=== PATIENT | female | born 1975 | race Caucasian/White ===

== ENCOUNTER 2019-11-01 14:56 | Emergency (ER) | payer MEDICAID ==
[~2019-11-01] VITALS: Ht 167.6 cm; Wt 76.0 kg
[~2019-11-01 14:56] MED LIST: ADV50250 IH; ALBU8.5H4 IH; CLON-527 PO; VAL2T PO
[2019-11-01 15:00] VITALS: BP 146/114
--- NOTE | 2019-11-01 15:48 | NUR ---
TRUONG Sapp at bedside.
[2019-11-01] MEDS ORDERED: AMOX-422 PO (15:57)
[2019-11-01] MEDS ORDERED: PRED20TA PO (15:57)
[2019-11-01] MEDS ORDERED: amox tr/potassium clavulanate 875/125mg TAB PO STA (15:58)
== END 2019-11-01 16:14 | disposition home or self-care (01) ==
LOC: ER 14:57
DX: K04.7 Periapical abscess without sinus (principal); J45.909 Unspecified asthma, uncomplicated; F41.9 Anxiety disorder, unspecified; Z86.69 Personal history of other diseases of the nervous system and sense organs; Z98.51 Tubal ligation status; Z72.89 Other problems related to lifestyle; Z56.0 Unemployment, unspecified; Z59.0 Homelessness; Z88.8 Allergy status to other drugs, medicaments and biological substances; Z79.899 Other long term (current) drug therapy
CPT/HCPCS: 99283

== ENCOUNTER 2019-12-08 13:26 | Emergency (ER) | payer MEDICAID ==
[~2019-12-08] VITALS: Ht 167.6 cm; Wt 68.2 kg
[2019-12-08 13:27] VITALS: BP 169/100
[2019-12-08] MEDS ORDERED: HYDR-3965 PO (13:40)
[2019-12-08] MEDS ORDERED: clindamycin 150mg capsule PO ONE (13:40)
[2019-12-08] MEDS ORDERED: AMOX500C2 PO (13:40)
[2019-12-08] MEDS ORDERED: CLIN150C8 PO (13:40)
== END 2019-12-08 14:09 | disposition home or self-care (01) ==
LOC: ER 13:26
DX: K08.89 Other specified disorders of teeth and supporting structures (principal); R22.0 Localized swelling, mass and lump, head; J45.909 Unspecified asthma, uncomplicated; F41.9 Anxiety disorder, unspecified; Z86.69 Personal history of other diseases of the nervous system and sense organs; Z98.51 Tubal ligation status; Z72.89 Other problems related to lifestyle; Z56.0 Unemployment, unspecified; Z59.0 Homelessness; Z88.8 Allergy status to other drugs, medicaments and biological substances; Z79.2 Long term (current) use of antibiotics; Z79.899 Other long term (current) drug therapy
CPT/HCPCS: 99283

== ENCOUNTER 2019-12-29 07:27 | Emergency (ER) | payer MEDICAID ==
[~2019-12-29] VITALS: Ht 167.6 cm; Wt 70.5 kg
[~2019-12-29 07:27] MED LIST changes: +AMOX500C2 PO; +CLIN150C8 PO; +HYDR-3965 PO
[2019-12-29 07:34] VITALS: BP 138/100
[2019-12-29] MEDS ORDERED: amox tr/potassium clavulanate 875/125mg TAB PO ONE (07:55)
[2019-12-29] MEDS ORDERED: AMOX-117 PO (07:57)
== END 2019-12-29 08:04 | disposition home or self-care (01) ==
LOC: ER 07:27
DX: K04.7 Periapical abscess without sinus (principal); K08.89 Other specified disorders of teeth and supporting structures; K02.9 Dental caries, unspecified; D53.9 Nutritional anemia, unspecified; R22.0 Localized swelling, mass and lump, head; J45.909 Unspecified asthma, uncomplicated; F41.9 Anxiety disorder, unspecified; F15.90 Other stimulant use, unspecified, uncomplicated; F19.90 Other psychoactive substance use, unspecified, uncomplicated; Z86.69 Personal history of other diseases of the nervous system and sense organs; Z98.51 Tubal ligation status; Z72.89 Other problems related to lifestyle; Z56.0 Unemployment, unspecified; Z59.0 Homelessness; Z88.8 Allergy status to other drugs, medicaments and biological substances; Z79.2 Long term (current) use of antibiotics; Z79.899 Other long term (current) drug therapy
CPT/HCPCS: 99283

== ENCOUNTER 2020-01-24 18:58 | Emergency (ER) | payer MEDICAID ==
[~2020-01-24] VITALS: Ht 167.6 cm; Wt 68.2 kg
[~2020-01-24 18:58] MED LIST changes: -AMOX500C2 PO; -HYDR-3965 PO
[2020-01-24 19:08] VITALS: BP 145/94
[2020-01-24] MEDS ORDERED: TRAM50TA2 PO (19:52)
[2020-01-24] MEDS ORDERED: CLIN300C70 PO (19:52)
== END 2020-01-24 20:09 | disposition home or self-care (01) ==
LOC: ER 18:59
DX: K04.7 Periapical abscess without sinus (principal); J45.909 Unspecified asthma, uncomplicated; F41.9 Anxiety disorder, unspecified; F15.90 Other stimulant use, unspecified, uncomplicated; Z86.69 Personal history of other diseases of the nervous system and sense organs; Z98.51 Tubal ligation status; Z72.89 Other problems related to lifestyle; Z98.890 Other specified postprocedural states; Z56.0 Unemployment, unspecified; Z59.0 Homelessness; Z88.8 Allergy status to other drugs, medicaments and biological substances; Z79.2 Long term (current) use of antibiotics; Z79.899 Other long term (current) drug therapy
CPT/HCPCS: 99283

== ENCOUNTER 2020-05-23 13:11 | Emergency (ER) | payer MEDICAID ==
[~2020-05-23] VITALS: Ht 160 cm; Wt 75.0 kg
[2020-05-23 13:16] VITALS: BP 166/103
[2020-05-23] MEDS ORDERED: HYDROcodone/acetaminophen 5mg/325mg tablet PO ONE (13:50)
[2020-05-23] MEDS ORDERED: ondansetron 4mg rapidly disintigrating tab PO ONE (13:50)
[2020-05-23] MEDS ORDERED: PENI500T2 PO (13:51)
== END 2020-05-23 14:10 | disposition home or self-care (01) ==
LOC: ER 13:12
DX: K08.89 Other specified disorders of teeth and supporting structures (principal); J45.909 Unspecified asthma, uncomplicated; F41.9 Anxiety disorder, unspecified; F15.90 Other stimulant use, unspecified, uncomplicated; F19.90 Other psychoactive substance use, unspecified, uncomplicated; Z98.51 Tubal ligation status; Z86.69 Personal history of other diseases of the nervous system and sense organs; Z72.89 Other problems related to lifestyle; Z59.0 Homelessness; Z56.0 Unemployment, unspecified; Z88.8 Allergy status to other drugs, medicaments and biological substances; Z79.2 Long term (current) use of antibiotics; Z79.899 Other long term (current) drug therapy
CPT/HCPCS: 99283

== ENCOUNTER 2021-01-20 23:24 | Emergency (ER) | payer MEDICAID ==
[~2021-01-20] VITALS: Ht 167.6 cm; Wt 66.2 kg
[2021-01-20 23:36] VITALS: BP 148/106
[2021-01-21] MEDS ORDERED: AMOX500C2 PO (00:32)
[2021-01-21] MEDS ORDERED: HYDR-3965 PO (00:32)
[2021-01-21] MEDS ORDERED: HYDROcodone/acetaminophen 5mg/325mg tablet PO ONE (00:35)
== END 2021-01-21 00:47 | disposition home or self-care (01) ==
LOC: ER 23:25
DX: K08.89 Other specified disorders of teeth and supporting structures (principal); R22.0 Localized swelling, mass and lump, head; R11.0 Nausea; J45.909 Unspecified asthma, uncomplicated; F41.9 Anxiety disorder, unspecified; F15.90 Other stimulant use, unspecified, uncomplicated; F19.90 Other psychoactive substance use, unspecified, uncomplicated; Z86.69 Personal history of other diseases of the nervous system and sense organs; Z98.51 Tubal ligation status; Z72.89 Other problems related to lifestyle; Z56.0 Unemployment, unspecified; Z59.0 Homelessness; Z88.8 Allergy status to other drugs, medicaments and biological substances; Z79.2 Long term (current) use of antibiotics; Z79.899 Other long term (current) drug therapy
CPT/HCPCS: 99283

== ENCOUNTER 2021-04-18 12:30 | Emergency (ER) | payer MEDICAID | END 2021-04-18 14:46 | disposition left against medical advice (07) | LOC: ER 12:31 | DX: Z53.21 Procedure and treatment not carried out due to patient leaving prior to being seen by health care provider (principal) ==